=== PATIENT | male | born 1985 | race African-American/Black ===

== ENCOUNTER 2017-02-04 08:10 | Emergency (ER) | payer MEDICARE, MEDICAID ==
--- NOTE | 2017-02-04 08:32 | EKG REPORT ---
SEVERITY:- BORDERLINE ECG - SINUS RHYTHM BORDERLINE T ABNORMALITIES, INFERIOR LEADS : Confirmed by: Bryson Francisco MD 04-Feb-2017 08:32:37
[2017-02-04] MEDS ORDERED: LIDOCAINE 2% VISCOUS SOLN 20 ML UDCUP PO ONE (09:19)
[2017-02-04] MEDS ORDERED: MAG HYDROX/AL HYDROX/SIMETH SUSP 30 ML UDCUP PO ONE (09:19)
[2017-02-04] MEDS ORDERED: ASPIRIN 81 MG TABLET, CHEWABLE PO ONE (09:19)
[2017-02-04] MEDS ORDERED: METOCLOPRAMIDE HCL ORAL SOLN 10 MG/10 ML UDCUP PO ONE (09:19)
--- NOTE | 2017-02-04 09:22 | ER Document Report ---
ED Cardiac - General Chief Complaint: Epigastric Pain Stated Complaint: CHEST PAIN Notes: The patient is a 31-year-old male, past medical history hypertension (not taking his meds), presents with 5 hours of epigastric pain and substernal chest pain as described as a burning sensation. He said the pain is constant. He has had this in the past and it resolved without any intervention. He denies numbness, tingling, shortness of breath, fevers, nausea, vomiting, back pain, leg swelling, cough, hemoptysis, fevers or recent travel. TRAVEL OUTSIDE OF THE [place] IN LAST 30 DAYS: No - Related Data Allergies/Adverse Reactions: No Known Allergies Allergy (Unverified 02/04/17 08:14) Past Medical History - General Information source: Patient - Social History Smoking Status: Never Smoker Frequency of alcohol use: None Drug Abuse: None Family History: Reviewed & Not Pertinent Patient has suicidal ideation: No Patient has homicidal ideation: No - Past Medical History Cardiac Medical History: Reports: Hx Hypertension Endocrine Medical History: Denies: Hx Diabetes Mellitus Type 2 Renal/ Medical History: Denies: Hx Peritoneal Dialysis Review of Systems - Review of Systems Notes: REVIEW OF SYSTEMS: CONSTITUTIONAL: -fevers, -chills EENT: -eye pain, -difficulty swallowing, -nasal congestion CARDIOVASCULAR: +chest pain, -syncope. RESPIRATORY: -cough, -SOB GASTROINTESTINAL: -epigastric pain, -nausea, -vomiting, -diarrhea GENITOURINARY: -dysuria, -hematuria MUSCULOSKELETAL: -back pain, -neck pain SKIN: -rash or skin lesions. HEMATOLOGIC: -easy bruising or bleeding. LYMPHATIC: -swollen, enlarged glands. NEUROLOGICAL: -altered mental status or loss of consciousness, -headache, - neurologic symptoms PSYCHIATRIC: -anxiety, -depression. ALL OTHER SYSTEMS REVIEWED AND NEGATIVE. Physical Exam - Vital signs Vitals: Temp Pulse Resp BP Pulse Ox 98.0 F 65 20 177/106 H 97 02/04/17 08:17 02/04/17 08:17 02/04/17 08:17 02/04/17 08:17 02/04/17 08:17 - Notes Notes: PHYSICAL EXAMINATION: GENERAL: Well-appearing, well-nourished and in no acute distress. HEAD: Atraumatic, normocephalic. EYES: Pupils equal round and reactive to light, extraocular movements intact, sclera anicteric, conjunctiva are normal. ENT: nares patent, oropharynx clear without exudates. Moist mucous membranes. NECK: Normal range of motion, supple without lymphadenopathy LUNGS: Breath sounds clear to auscultation bilaterally and equal. No wheezes rales or rhonchi. HEART: Regular rate and rhythm without murmurs ABDOMEN: Soft, nontender, normoactive bowel sounds. No guarding, no rebound. No masses appreciated. EXTREMITIES: Normal range of motion, no pitting or edema. No cyanosis. NEUROLOGICAL: Cranial nerves grossly intact. Normal speech, normal gait. Normal sensory, motor, and reflex exams. PSYCH: Normal mood, normal affect. SKIN: Warm, Dry, normal turgor, no rashes or lesions noted. Course - Re-evaluation Re-evalutation: Patient's HEART score 2. PERC negative and symptoms atypical for aortic dissection without back pain. After GI cocktail, patient is completely asymptomatic. Since patient's symptoms started last night and are constant, only one troponin is required. Troponin negative. He does have mild rhabdo with a CK of 1100, but no renal injury. Provided 2 L of fluids and told patient that he must drink plenty of fluids. Once again, he denies any cocaine use or prolonged immobility. Will provide him with a refill of his amlodipine for his hypertension and told him to follow-up with primary care physician for further evaluation of his chest pain. Also told him to take Pepcid to help with any symptoms. - Vital Signs Vital signs: Temp Pulse Resp BP Pulse Ox 98.0 F 65 20 177/106 H 97 02/04/17 08:17 02/04/17 08:17 02/04/17 08:17 02/04/17 08:17 02/04/17 08:17 - Laboratory Result Diagrams: 02/04/17 09:31 02/04/17 09:31 Laboratory results interpreted by me: 02/04/17 09:31 Creatine Kinase 1192 H - Diagnostic Test Radiology reviewed: Image reviewed, Reports reviewed Radiology results interpreted by me: CXR: NAD - EKG Interpretation by Me EKG shows normal: Sinus rhythm, [place], Intervals, QRS Complexes, ST-T Waves Rate: Normal When compared to previous EKG there are: Previous EKG unavailable Discharge - Discharge Clinical Impression: Rhabdomyolysis Qualifiers: Rhabdomyolysis type: non-traumatic Qualified Code(s): M62.82 - Rhabdomyolysis Chest pain Qualifiers: Chest pain type: unspecified Qualified Code(s): R07.9 - Chest pain, unspecified Hypertension Qualifiers: Hypertension type: other secondary hypertension Qualified Code(s): I15.8 - Other secondary hypertension Condition: Good Disposition: HOME, SELF-CARE Additional Instructions: You must drink plenty of water over the next few days to help prevent any more muscle breaking down. Take Pepcid to help with any pain. He must follow-up with the primary care physician for further evaluation of your chest pain and to have your muscle enzymes rechecked. Return immediately to the emergency room if he have worsening pain or any other concerns. CHEST PAIN OF UNCLEAR CAUSE: The exact cause of your chest pain isn't clear. Fortunately, there is no evidence of a dangerous medical condition. Further testing may be required to find the source of the pain. Most often, we find that this pain is coming from the chest wall -- the muscles or rib joints in the chest. But chest pain can come from the lung and lung lining, the esophagus, the heart valves or heart lining, and even the stomach or gallbladder. Rest. Eat lightly until the pain is gone. We may prescribe medicine for pain and inflammation. You should call the physician immediately if the pain radiates to the shoulder, jaw or arms; if you start to run a fever or develop a cough; or if you develop shortness of breath, or other new or alarming symptoms. NORMAL EXAM AND WORKUP: At this time, your examination and workup show no significant abnormality. No significant abnormal physical findings were noted. All laboratory, EKG, and imaging (x-ray, CT scans, ultrasound) studies that were ordered show no significant abnormality. Although your examination and all studies that were ordered showed no significant abnormal finding, there are no examinations and no studies that are 100% accurate. There is always the possibility that some abnormality could exist and not be detected with physical examination or within the limits and capabilities of laboratory and other studies. You should return or follow up as you were instructed on your visit today for further evaluation if your symptoms do not resolve. CHEST WALL PAIN: Your chest pain may be coming from the chest wall. This is often caused by straining the muscles or joints in the chest during physical activity, direct trauma, coughing, or vigorous vomiting. Persons with arthritis are especially prone to this type of pain, due to inflammation of the cartilage joints near the breast bone. Occasionally, no cause can be found. Rest from strenuous physical activity. This kind of chest pain is usually made worse by movement of the chest. Depending on the symptoms, we may prescribe medicine for pain, muscle relaxation, and antiinflammatory effects. If the pain is new, and seems to be due to muscle strain, cold packs can help. Otherwise, apply gentle warmth to the painful area for 15 minutes every hour or two. You should call contact the doctor immediately if things change. Further evaluation is needed if you develop a fever or cough, if the nature of the pain changes, or if you become short of breath. ANGINA EPISODE: Your physician has diagnosed the pain you experienced as an episode of angina. Angina occurs when a portion of the heart muscle temporarily lacks oxygen. It does not cause any permanent heart damage, but serves as a warning. Hospitalization is not necessary now. Evaluation of your cardiac condition , and medical therapy for angina will be necessary. It's important you be sure to keep all appointments and take medication exactly as prescribed. Angina is usually treated with a type of "nitrate" medication. This is available as ointment, pills, or sublingual (under the tongue) tablets. Depending on your clinical situation, other medications may be added to help control angina. These may include beta blockers or calcium blockers. If episodes of angina are occurring with increased frequency, or if chest pain lasts longer than 15 minutes or does not respond to nitroglycerin, you must seek emergency medical care immediately. ACID REFLUX DISEASE (GERD): Gastro-Esophageal Reflux Disease (GERD) is caused by stomach acid refluxing back up into the esophagus. The valve at the end of the esophagus may be weak. This is common in persons with a hiatal hernia. GERD symptoms can include indigestion, chest pain, heartburn, or food "sticking." Certain foods, alcohol, and aspirin can make GERD worse. Treatment depends on the severity. Usually, antacids or acid-suppressing medicines are used. When the esophagus is acutely inflamed, the physician will often prescribe membrane-protective drugs such as Carafate. Some patients benefit from medication such as Reglan that tightens the valve at the top of the stomach. Avoid those foods that bring on your symptoms. For many people, these foods are coffee, chocolate, onions, garlic, and carbonated drinks. Don't use alcohol, aspirin, caffeine, or tobacco. Don't eat late at night -- within 4 hours of bedtime. Don't over-eat. If necessary, elevate the head of your bed about 4 inches so that stomach acid will not roll up into your esophagus. Call the doctor if you develop severe chest pain, inability to swallow fluids, fever, or worsening symptoms. ANTACID THERAPY: You have been instructed to start antacid therapy. Antacids directly neutralize stomach acid. This is useful for acid irritation of the esophagus, gastritis, and ulcers. You should take two tablespoons of antacid one hour after each meal and three hours after each meal. If you are not eating, take the antacid every two hours. If you are using a concentrate (such as Maalox TC), use only one tablespoon. Many antacids affect the bowels. The most common problem is diarrhea. In this case, a pure aluminum hydroxide antacid (such as AlternaGel) can be substituted for some or all doses. If the problem is constipation, add a teaspoon of Milk of Magnesia to each dose. Call the doctor if you experience continued diarrhea or constipation, or if you develop lightheadedness, bloody stool or vomitus, severe abdominal pain, or black stool. FOLLOW-UP CARE: If you have been referred to a physician for follow-up care, call the physician s office for an appointment as you were instructed or within the next two days. If you experience worsening or a significant change in your symptoms, notify the physician immediately or return to the Emergency Department at any time for re-evaluation. Prescriptions: Amlodipine Besylate 5 mg PO DAILY #30 tab Referrals: DARIEN DEAN MD [COMMUNITY BASED STAFF] - Follow up as needed
[2017-02-04 09:55] LABS: ABSOLUTE BASOPHILS # (AUTO) 0.1 10^3/uL (0.0-0.2); ABSOLUTE EOSINOPHILS # (AUTO) 0.2 10^3/uL (0.0-0.6); ABSOLUTE LYMPHOCYTES (AUTO) 2.2 10^3/uL (0.5-4.7); ABSOLUTE MONOCYTES (AUTO) 0.5 10^3/uL (0.1-1.4); ABSOLUTE NEUT (AUTO) 3.4 10^3/uL (1.7-8.2); BASOPHILS % (AUTO) 0.9 % (0-2); EOSINOPHILS % (AUTO) 3.2 % (0-6); HEMATOCRIT 43.8 % (37.9-51.0); HEMOGLOBIN 14.2 g/dL (13.5-17.0); HGB HCT DIFFERENCE -1.2; LYMPHOCYTES % (AUTO) 34.8 % (13-45); MEAN CORPUSCULAR HGB CONC 32.5 g/dL (32.0-36.0); MEAN CORPUSCULAR VOLUME 83 fl (80-97); MONOCYTES % (AUTO) 7.4 % (3-13); RED BLOOD COUNT 5.26 10^6/uL (4.35-5.55); RED CELL DISTRIBUTION WIDTH 12.7 % (11.5-14.0); SEGMENTED NEUTROPHILS % (AUTO) 53.7 % (42-78); WHITE BLOOD COUNT 6.3 10^3/uL (4.0-10.5)
[2017-02-04 10:08] LABS: ALANINE AMINOTRANSFERASE 49 U/L (21-72); ALKALINE PHOSPHATASE 78 U/L (38-126); ANION GAP 11 (5-19); ASPARTATE AMINO TRANSFERASE 38 U/L (17-59); BILIRUBIN,DIRECT 0.2 mg/dL (0.0-0.4); BILIRUBIN,TOTAL 0.9 mg/dL (0.2-1.3); BLOOD UREA NITROGEN 15 mg/dL (7-20); CALCIUM 9.5 mg/dL (8.4-10.2); CARBON DIOXIDE 27 mmol/L (22-30); CHLORIDE 106 mmol/L (98-107); CREATINE KINASE 1192 U/L (55-170); CREATININE RESULT 0.88 mg/dL (0.52-1.25); GLUCOSE 101 mg/dL (75-110); LIPASE 104.7 U/L (23-300); POTASSIUM 4.2 mmol/L (3.6-5.0); SODIUM 144.3 mmol/L (137-145); TOTAL PROTEIN 7.1 g/dL (6.3-8.2)
[2017-02-04] MEDS ORDERED: NORMAL SALINE 1000 ML 1,000 ML IV PRN (10:41)
[2017-02-04 11:57] VITALS: BP 181/108
== END 2017-02-04 11:57 | disposition home or self-care (01) ==
LOC: ER 08:10
DX: M62.82 Rhabdomyolysis (principal); R07.9 Chest pain, unspecified; R10.13 Epigastric pain; I15.8 Other secondary hypertension
CPT/HCPCS: 93005; 99285; 96360; 36415; 82550; 83690; 85025; 80053; 84484; 71020; 93010; A9270 ×2; J3490; J7030

== ENCOUNTER 2017-10-23 03:29 | Emergency (ER) | payer MEDICARE, MEDICAID ==
[2017-10-23] MEDS ORDERED: IPRATROPIUM/ALBUTEROL 0.5-2.5 MG/3 ML AMPUL NEB ONE ×2 (04:17→05:47)
[2017-10-23] MEDS ORDERED: AZITHROMYCIN 250 MG TABLET PO ONE (05:47)
[2017-10-23] MEDS ORDERED: PREDNISONE 20 MG TABLET PO ONE (05:48)
--- NOTE | 2017-10-23 05:48 | RADIOLOGY REPORT (SQ) ---
EXAM DESCRIPTION: CHEST PA/LAT CLINICAL HISTORY: 32 years, Male, sob COMPARISON: None. NUMBER OF VIEWS: Two TECHNIQUE: Frontal and lateral LIMITATIONS: None. FINDINGS: Adequate lung volumes, clear parenchyma, mild enlargement of the cardiac silhouette, intact bony thorax. IMPRESSION: Mild enlargement of the cardiac silhouette. Otherwise, unremarkable. 2010 [email or web address]- All Rights Reserved
--- NOTE | 2017-10-23 05:59 | ER Document Report ---
ED General - General Chief Complaint: Cough Stated Complaint: BREATHING DIFFICULTY Time Seen by Provider: 10/23/17 04:17 TRAVEL OUTSIDE OF THE [place] IN LAST 30 DAYS: No - HPI Patient complains to provider of: Difficulty breathing Notes: Patient presents for difficulty breathing ongoing for the last 2 days worse tonight. Patient states he does smoke stop smoking 2 days ago when he started having difficulty breathing denies any chills states night sweats coughing up productive sputum. Denies any recent travel patient does have a history of hypertension states he does take medication however did not take it tonight. Patient otherwise looks to be no obvious distress upon my evaluation. - Related Data Allergies/Adverse Reactions: No Known Allergies Allergy (Verified 10/23/17 03:30) Past Medical History - Social History Smoking Status: Current Every Day Smoker Chew tobacco use (# tins/day): No Frequency of alcohol use: None Drug Abuse: None Family History: Reviewed & Not Pertinent Patient has suicidal ideation: No Patient has homicidal ideation: No - Past Medical History Cardiac Medical History: Reports: Hx Hypertension Endocrine Medical History: Denies: Hx Diabetes Mellitus Type 2 Renal/ Medical History: Denies: Hx Peritoneal Dialysis Review of Systems - Review of Systems Constitutional: No symptoms reported EENT: No symptoms reported Cardiovascular: No symptoms reported Respiratory: Cough, Short of breath, Wheezing Gastrointestinal: No symptoms reported Genitourinary: No symptoms reported Male Genitourinary: No symptoms reported Musculoskeletal: No symptoms reported Skin: No symptoms reported Hematologic/Lymphatic: No symptoms reported Neurological/Psychological: No symptoms reported -: Yes All other systems reviewed and negative Physical Exam - Vital signs Vitals: Temp Pulse Resp BP Pulse Ox 99.1 F 87 18 202/103 H 98 10/23/17 03:30 10/23/17 03:30 10/23/17 03:30 10/23/17 03:30 10/23/17 03:30 Interpretation: Hypertensive - General General appearance: Appears well, Alert - HEENT Head: Normocephalic, Atraumatic Eyes: Normal Pupils: PERRL - Respiratory Respiratory status: No respiratory distress Chest status: Nontender Breath sounds: Rhonchi, Wheezing Chest palpation: Normal - Cardiovascular Rhythm: Regular Heart sounds: Normal auscultation Murmur: No - Abdominal Inspection: Normal Distension: No distension Bowel sounds: Normal Tenderness: Nontender Organomegaly: No organomegaly - Back Back: Normal, Nontender - Extremities General upper extremity: Normal inspection, Nontender, Normal color, Normal ROM , Normal temperature General lower extremity: Normal inspection, Nontender, Normal color, Normal ROM , Normal temperature, Normal weight bearing. No: Temo's sign - Neurological Neuro grossly intact: Yes Cognition: Normal Orientation: AAOx4 Azeem Coma Scale Eye Opening: Spontaneous [place] Coma Scale Verbal: Oriented Aze[place] Coma Scale Motor: Obeys Commands [place] Coma Scale Total: 15 Speech: Normal Motor strength normal: LUE, RUE, LLE, RLE Sensory: Normal - Psychological Associated symptoms: Normal affect, Normal mood - Skin Skin Temperature: Warm Skin Moisture: Dry Skin Color: Normal Course - Re-evaluation Re-evalutation: 10/23/17 06:15 Chest x-ray reviewed by myself does not show any signs of overt pneumonia. Symptoms more likely due to bronchitis. Patient did have some improvement after breathing treatment. Will discharge patient home bronchodilators steroids and Zithromax due to productive cough. Educated patient to stop smoking. Patient states understanding will discharge - Vital Signs Vital signs: Temp Pulse Resp BP Pulse Ox 99.1 F 87 18 202/103 H 98 10/23/17 03:30 10/23/17 03:30 10/23/17 03:30 10/23/17 03:30 10/23/17 03:30 Discharge - Discharge Clinical Impression: Bronchitis Condition: Good Disposition: HOME, SELF-CARE Instructions: Bronchitis With Bronchospasm (Wheezing) ([facility]) Additional Instructions: There examination is consistent with bronchitis. More likely this is due to your smoking and to the weather changes. Please stop smoking take medications as prescribed. Return to the ER symptoms worsen. Also is very important that she follow-up with primary care physician physicians provided or clinics provided for further control of your blood pressure. Please continue to take the blood pressure medication that you have at home. Return to the ER if any symptoms worsen. Prescriptions: Azithromycin 250 mg PO DAILY 4 Days tablet Prednisone [Deltasone] 60 mg PO DAILY 5 Days tablet Forms: Return to Work, Smoking Cessation Education
[2017-10-23] MEDS ORDERED: PREDNISONE 20 MG TABLET ONE ×2 (06:21→06:39)
[2017-10-23] MEDS ORDERED: ALBUTEROL SULFATE HFA (90 MCG/PUFF) 8 GM MDI (1 MDI/ER DISP) IH ONE (06:23)
[2017-10-23 06:46] VITALS: BP 145/82
== END 2017-10-23 06:40 | disposition home or self-care (01) ==
LOC: ER 03:29
DX: J40 Bronchitis, not specified as acute or chronic (principal); F17.200 Nicotine dependence, unspecified, uncomplicated; I10 Essential (primary) hypertension
CPT/HCPCS: 94640; 99283; 71020; A9270 ×3; J3490; J7512; J7620

== ENCOUNTER 2018-08-30 02:33 | Emergency (ER) | payer MEDICARE, MEDICAID ==
--- NOTE | 2018-08-30 05:16 | ER Document Report ---
HPI - HPI Patient complains to provider of: cough/congestion Pain Level: Denies Context: Patient is a 33-year-old male presenting to the emergency department complaining of cough and congestion. Patient states he has had increased cough and congestion for the last week. Patient denies fever.. Patient denies nausea , vomiting, diarrhea, chest pain, abdominal pain, dysuria. Patient states this evening when he was lying flat in bed he had an increase in nasal secretions and was coughing too much and could not sleep. Patient states he felt better when he sat up but when he tried to lay down the secretions continued and he was feeling short of breath. Patient states as long as he is sitting upright he has no respiratory distress. States he is just congested. Patient tried no [id number] medications. Past medical history: None Medications: None Allergies: None Surgical history: None Patient admits to everyday cigarette use, denies EtOH use, denies illicit drug use. - CONSTITUTIONAL Constitutional: DENIES: Fever, Chills - EENT EENT: DENIES: Sore Throat, Ear Pain, Eye problems - NEURO Neurology: DENIES: Headache, Weakness, Vision blurred, Dizzinesss / Vertigo - CARDIOVASCULAR Cardiovascular: DENIES: Chest pain - RESPIRATORY Respiratory: REPORTS: Trouble Breathing, Coughing - GASTROINTESTINAL Gastrointestinal: DENIES: Abdominal Pain, Black / Bloody Stools - URINARY Urinary: DENIES: Dysuria, Urgency, Frequency - MUSCULOSKELETAL Musculoskeletal: DENIES: Extremity pain Past Medical History - General Information source: Patient - Social History Smoking Status: Current Every Day Smoker Lives with: Family Family History: Reviewed & Not Pertinent Patient has suicidal ideation: No Patient has homicidal ideation: No - Past Medical History Cardiac Medical History: Reports: Hx Hypertension Endocrine Medical History: Denies: Hx Diabetes Mellitus Type 2 Renal/ Medical History: Denies: Hx Peritoneal Dialysis Vertical Provider Document - CONSTITUTIONAL Agree With Documented VS: Yes Notes: GENERAL: Alert, interacts well. No acute distress. HEAD: Normocephalic, atraumatic. EYES: Pupils equal, round, and reactive to light. Extraocular movements intact. ENT: Oral mucosa moist, tongue midline. Nares patent, swollen turbinates bilaterally, TM's intact, no erythema or bulging noted. Pharynx within normal limits. Tonsils +2 no exudate or palatal petechiae noted NECK: Full range of motion. Supple. Trachea midline. No adenopathy appreciated LUNGS: Clear to auscultation bilaterally, no wheezes, rales, or rhonchi. No respiratory distress. HEART: Regular rate and rhythm. No murmur ABDOMEN: Soft, non-tender. Non-distended. Bowel sounds present in all 4 quadrants. EXTREMITIES: Moves all 4 extremities spontaneously. No edema, normal radial and dorsalis pedis pulses bilaterally. No cyanosis. BACK: no cervical, thoracic, lumbar midline tenderness. No saddle anesthesia, normal distal neurovascular exam. NEUROLOGICAL: Alert and oriented x3. Normal speech. [cranial nerves II through XII grossly intact]. PSYCH: Normal affect, normal mood. SKIN: Warm, dry, normal turgor. No rashes or lesions noted. - INFECTION CONTROL TRAVEL OUTSIDE OF THE [place] IN LAST 30 DAYS: No Course - Re-evaluation Re-evalutation: 08/30/18 05:14 This is likely viral in nature no frontal or ethmoid sinus tenderness. No signs of sinusitis. No fever and duration is only 1 week. We will treat with nasal steroids. Return precautions given. - Vital Signs Vital signs: Temp Pulse Resp BP Pulse Ox 98.5 F 81 22 H 188/108 H 96 08/30/18 02:48 08/30/18 02:48 08/30/18 02:48 08/30/18 02:48 08/30/18 02:48 Discharge - Discharge Clinical Impression: Upper respiratory infection Qualifiers: URI type: unspecified viral URI Qualified Code(s): J06.9 - Acute upper respiratory infection, unspecified Condition: Stable Disposition: HOME, SELF-CARE Instructions: Acetaminophen, Upper Respiratory Illness ([facility]), Viral Syndrome ( [facility]) Additional Instructions: As we discussed if possible you should sleep with a couple extra pillows for the next couple of days. This will help your sinus drainage. You should also go into the bathroom with steam. This will help your nasal drainage. Use nasal spray as prescribed. Follow-up with primary care in the next 24-48 hours. Return to the emergency room for any other concerning symptoms. Prescriptions: Fluticasone Propionate [Flonase Nasal [place] 50 Mcg/[place] 16 gm] 2 sprays NASL Q12 #1 inhaler
[2018-08-30 05:49] VITALS: BP 170/99
== END 2018-08-30 05:23 | disposition home or self-care (01) ==
LOC: ER 02:33
DX: J06.9 Acute upper respiratory infection, unspecified (principal); F17.210 Nicotine dependence, cigarettes, uncomplicated; R06.00 Dyspnea, unspecified
CPT/HCPCS: 99283

== ENCOUNTER 2018-09-21 17:33 | Emergency (ER) | payer MEDICARE, MEDICAID ==
[2018-09-21] MEDS ORDERED: TETRACAINE HCL 0.5% OPH SOLN 4 ML OS ONE (17:38)
--- NOTE | 2018-09-21 19:19 | ER Document Report ---
HPI - HPI Patient complains to provider of: right eye red Onset: Other - 2 days ago Pain Level: 5 Context: 33 yo non contact lens wearer c/o reddened right eye. Shaved metal the other day , next day it became red and this morning was crusted shut. No visual changes. Associated Symptoms: None Exacerbated by: Denies Relieved by: Denies - ROS ROS below otherwise negative: Yes Systems Reviewed and Negative: Yes All other systems reviewed and negative Past Medical History - General Information source: Patient - Social History Smoking Status: Current Every Day Smoker Lives with: Family Family History: Reviewed & Not Pertinent - Past Medical History Cardiac Medical History: Reports: Hx Hypertension - no meds for a long time Surgical Hx: Negative Vertical Provider Document - CONSTITUTIONAL Agree With Documented VS: Yes Exam Limitations: No Limitations General Appearance: No Apparent Distress - INFECTION CONTROL TRAVEL OUTSIDE OF THE [place] IN LAST 30 DAYS: No - HEENT HEENT: Conjuctival Injection Notes: PERRL, bulbar and palpebral conjunctival injection, no limbic flare, anterior chamber clear, no FB, no fluorescein uptake. Some preauricular nodes. - NECK Neck: Supple Course - Re-evaluation Re-evalutation: 09/21/18 20:07 visual acuity is normal. IOP right: 34.95, left 25.9. Consult Dr. Daniels who said use erythromycin ointment tonight and he will see him tomorrow morning at 8 AM he wants to see if a physician will use the slit lamp and I will go check on that. 09/21/18 20:19 Dr. Maharaj will come use a slit-lamp for the exam 09/21/18 20:36 Slit-lamp exam was negative per Dr. Maharaj. I placed the erythromycin half- inch ointment into his eye. He plans on scheduling an appointment with family [facility] for the hypertension that he is not treating. - Vital Signs Vital signs: Temp Pulse Resp BP Pulse Ox 98.7 F 95 20 195/108 H 95 09/21/18 18:02 09/21/18 18:02 09/21/18 18:02 09/21/18 18:02 09/21/18 18:02 Discharge - Discharge Clinical Impression: elevated eye pressures Conjunctivitis, right eye Qualifiers: Conjunctivitis type: unspecified Qualified Code(s): H10.9 - Unspecified conjunctivitis Hypertension Qualifiers: Hypertension type: unspecified Qualified Code(s): I10 - Essential (primary) hypertension Condition: Good Disposition: HOME, SELF-CARE Instructions: Acetaminophen, Conjunctivitis ([facility]), Ibuprofen (General) ([facility]), Topical Erythromycin ([facility]) Additional Instructions: Erythromycin eye ointment half an inch every [address] Daniels eye doctor tomorrow morning at 8 I have included the address and phone number See Dr. Wilson which is the family [facility] for your hypertension Referrals: ELLY DANIELS MD [ACTIVE STAFF] - Follow up tomorrow (8 am) NORA WILSON DO [NO LOCAL MD] - Follow up as needed (schedule appointment for hypertension treatment)
[2018-09-21] MEDS ORDERED: ERYTHROMYCIN 0.5% OPH OINTMENT 3.5 GM (ER DISP) OD PRN (20:14)
[2018-09-21] MEDS ORDERED: IBUPROFEN 800 MG TABLET PO ONE (20:43)
[2018-09-21] MEDS ORDERED: ACETAMINOPHEN 325 MG TABLET PO ONE (20:43)
[2018-09-21 20:44] VITALS: BP 152/90
== END 2018-09-21 20:49 | disposition home or self-care (01) ==
LOC: ER 17:33
DX: H40.053 Ocular hypertension, bilateral (principal); H10.9 Unspecified conjunctivitis; I10 Essential (primary) hypertension; F17.200 Nicotine dependence, unspecified, uncomplicated
CPT/HCPCS: 99283; A9270; J3490

== ENCOUNTER 2018-09-26 12:29 | Emergency (ER) | payer MEDICARE, MEDICAID ==
[2018-09-26 12:40] VITALS: BP 162/99
[2018-09-26] MEDS ORDERED: TETRACAINE HCL 0.5% OPH SOLN 4 ML OU ONE (13:01)
--- NOTE | 2018-09-26 13:30 | ER Document Report ---
HPI - HPI Patient complains to provider of: Left eye discharge. Pain Level: 3 Context: Patient is a 33-year-old male presenting to the emergency department complaining of left eye discharge. Patient states he was to the department 5 days ago with right eye discharge. Stated he was treated with erythromycin ointment which he has since been using in the right eye. States this morning he noticed discharge to the left eye which is what prompted his emergency room visit. Patient states after coming to the emergency room he was told to follow- up with ophthalmology which he did. States hyperion analyst told him to just continue erythromycin ointment for conjunctivitis. Patient denies any foreign body sensation in the left eye. States right eye is still red but has not had any discharge and feels "a whole lot better." Past medical history: Hypertension Medications: Amlodipine Allergies: None - CONSTITUTIONAL Constitutional: REPORTS: Fever. DENIES: Chills - EENT EENT: REPORTS: Sore Throat, Ear Pain, Eye problems - NEURO Neurology: REPORTS: Vision blurred. DENIES: Headache, Weakness, Dizzinesss / Vertigo - CARDIOVASCULAR Cardiovascular: DENIES: Chest pain - RESPIRATORY Respiratory: REPORTS: Coughing. DENIES: Trouble Breathing - GASTROINTESTINAL Gastrointestinal: DENIES: Abdominal Pain, Black / Bloody Stools - URINARY Urinary: DENIES: Dysuria, Urgency, Frequency - MUSCULOSKELETAL Musculoskeletal: DENIES: Extremity pain Past Medical History - General Information source: Patient - Social History Smoking Status: Current Every Day Smoker Chew tobacco use (# tins/day): No Frequency of alcohol use: None Drug Abuse: None Lives with: Family Family History: Reviewed & Not Pertinent Patient has suicidal ideation: No Patient has homicidal ideation: No - Past Medical History Cardiac Medical History: Reports: Hx Hypertension - no meds for a long time Endocrine Medical History: Denies: Hx Diabetes Mellitus Type 2 Renal/ Medical History: Denies: Hx Peritoneal Dialysis Vertical Provider Document - CONSTITUTIONAL Agree With Documented VS: Yes Notes: GENERAL: Morbidly obese alert, interacts well. No acute distress. HEAD: Normocephalic, atraumatic. EYES: Pupils equal, round, and reactive to light. Extraocular movements intact. Conjunctival injection bilateral eyes, left eye with matted eyelashes, right eye no discharge noted. ENT: Oral mucosa moist, tongue midline. NECK: Full range of motion. Supple. Trachea midline. LUNGS: Clear to auscultation bilaterally, no wheezes, rales, or rhonchi. No respiratory distress. HEART: Regular rate and rhythm. No murmur ABDOMEN: Soft, non-tender. Non-distended. Bowel sounds present in all 4 quadrants. EXTREMITIES: Moves all 4 extremities spontaneously. No edema, normal radial and dorsalis pedis pulses bilaterally. No cyanosis. BACK: no cervical, thoracic, lumbar midline tenderness. No saddle anesthesia, normal distal neurovascular exam. NEUROLOGICAL: Alert and oriented x3. Normal speech. cranial nerves II through XII grossly intact PSYCH: Normal affect, normal mood. SKIN: Warm, dry, normal turgor. No rashes or lesions noted. - INFECTION CONTROL TRAVEL OUTSIDE OF THE [place] IN LAST 30 DAYS: No Course - Re-evaluation Re-evalutation: 09/26/18 13:37 Patient states although ointment has been helping his right eye he would like drops for the left eye. Patient also requesting oral antibiotics at this time. Discussed at length with patient that oral antibiotics will not treat his eye infection. Will discharge him home with Polytrim drops. Patient denies wearing contact lenses. Discussed follow-up with hyperion analyst and return precautions discussed. 09/26/18 13:40 No foreign body sensation felt in the left eye, no need for florescene stain. Patient states he is unable to see out of the left eye because of the discharge and it is blurry. Had Dr. Sweet use slit lamp at bedside who stated exam was normal. stated he needs to f/u with Dr. Daniels again. - Vital Signs Vital signs: Temp Pulse Resp BP Pulse Ox 97.7 F 65 18 162/99 H 94 09/26/18 12:38 09/26/18 12:38 09/26/18 12:38 09/26/18 12:38 09/26/18 12:38 Discharge - Discharge Clinical Impression: Conjunctivitis Qualifiers: Conjunctivitis type: acute Acute conjunctivitis type: bacterial Laterality: left Qualified Code(s): H10.32 - Unspecified acute conjunctivitis, left eye Condition: Stable Disposition: HOME, SELF-CARE Instructions: Conjunctivitis ([facility]), Eyedrop Use ([facility]) Additional Instructions: As we discussed you have been seen and treated in the emergency room for conjunctivitis. Please use prescription drops as prescribed. Please also follow-up with the hyperion analyst Dr. Daniels again. Please make an appointment with your primary care provider. Return to the emergency room for any other concerning symptoms. Prescriptions: Polymyxin B Sulf/Trimethoprim [Polytrim Eye Drops] 1 drop OS Q3H #10 ml Forms: Elevated Blood Pressure
== END 2018-09-26 14:14 | disposition home or self-care (01) ==
LOC: ER 12:29
DX: H10.32 Unspecified acute conjunctivitis, left eye (principal); J02.9 Acute pharyngitis, unspecified; R05 Cough; R50.9 Fever, unspecified; F17.200 Nicotine dependence, unspecified, uncomplicated; E11.9 Type 2 diabetes mellitus without complications; E66.01 Morbid (severe) obesity due to excess calories; I10 Essential (primary) hypertension; Z79.899 Other long term (current) drug therapy
CPT/HCPCS: 99283; J3490

== ENCOUNTER 2018-09-29 01:42 | Emergency (ER) | payer MEDICARE, MEDICAID ==
[2018-09-29 01:49] VITALS: BP 170/101
--- NOTE | 2018-09-29 02:13 | ER Document Report ---
ED Eye Complaint - General Chief Complaint: Eye Pain Stated Complaint: LEFT EYE PAIN Time Seen by Provider: 09/29/18 02:05 Notes: Patient is a 33-year-old male that comes to the emergency department for chief complaint of left eye irritation and discharge, he also has right artery discharge but this has improved and resolved. He was treated with erythromycin ointment initially for the right eye, he then developed discharge in the left eye which she was seen for in the department 3 days ago. He was placed on Polytrim drops but states he has are not helping even though the right eye has resolved now. Family members now also have irritated eyes with discharge. Patient does not wear contacts, did not wear glasses. Patient does report foreign body sensation. He denies getting anything in his eye or scratching his eye. Patient states he has already followed up with ophthalmology before his visit to the emergency department 3 days ago and they told him to just continue the erythromycin ointment for conjunctivitis. Past medical history of hypertension, previously on amlodipine. TRAVEL OUTSIDE OF THE [place] IN LAST 30 DAYS: No - Related Data Allergies/Adverse Reactions: No Known Allergies Allergy (Verified 09/26/18 12:38) Past Medical History - General Information source: Patient - Social History Smoking Status: Never Smoker Drug Abuse: None Lives with: Family Family History: Reviewed & Not Pertinent Patient has suicidal ideation: No Patient has homicidal ideation: No - Past Medical History Cardiac Medical History: Reports: Hx Hypertension Endocrine Medical History: Denies: Hx Diabetes Mellitus Type 2 Renal/ Medical History: Denies: Hx Peritoneal Dialysis Surgical Hx: Negative - Immunizations Immunizations up to date: Yes Hx Diphtheria, Pertussis, Tetanus Vaccination: Yes Review of Systems - Review of Systems Constitutional: No symptoms reported EENT: See HPI Cardiovascular: No symptoms reported Respiratory: No symptoms reported Gastrointestinal: No symptoms reported Genitourinary: No symptoms reported Male Genitourinary: No symptoms reported Musculoskeletal: No symptoms reported Skin: No symptoms reported Hematologic/Lymphatic: No symptoms reported Neurological/Psychological: No symptoms reported Physical Exam - Vital signs Vitals: Temp Pulse Resp BP Pulse Ox 98.6 F 74 18 170/101 H 97 09/29/18 01:47 09/29/18 01:47 09/29/18 01:47 09/29/18 01:47 09/29/18 01:47 - Notes Notes: GENERAL: Alert, interacts well. No acute distress. HEAD: Normocephalic, atraumatic. EYES: Pupils equal, round, and reactive to light. Extraocular movements intact. Sclera injected bilaterally, much worse on the left, there is clear discharge from the left eye, no discharge from the right. Patient has difficulty opening the left eye. No superficial foreign body, negative Tiburcio sign. There is a large amount of circular fluorescein uptake covering almost 1/3 of the area of the iris width suggestive of corneal ulcer. ENT: Oral mucosa moist, tongue midline. Oropharynx unremarkable. Airway patent. Nares patent, no nasal septal hematoma, TM's intact. NECK: Full range of motion. Supple. Trachea midline. LUNGS: Clear to auscultation bilaterally, no wheezes, rales, or rhonchi. No respiratory distress. HEART: Regular rate and rhythm. No murmur ABDOMEN: Soft, non-tender. Non-distended. Bowel sounds present in all 4 quadrants. GENITOURINARY: Deferred EXTREMITIES: Moves all 4 extremities spontaneously. No edema, normal radial and dorsalis pedis pulses bilaterally. No cyanosis. BACK: no cervical, thoracic, lumbar midline tenderness. No saddle anesthesia, normal distal neurovascular exam. NEUROLOGICAL: Alert and oriented x3. Normal speech. [cranial nerves II through XII grossly intact]. PSYCH: Normal affect, normal mood. SKIN: Warm, dry, normal turgor. No rashes or lesions noted. Course - Re-evaluation Re-evalutation: On evaluation patient appears to have a corneal ulcer. He does not have visual loss. No foreign bodies noted. Dr. Silveira did evaluate the patient at bedside and agrees. Called and spoke with Dr. Khan, ophthalmology transportation department head. He states patient was evaluated at his office previously, no foreign bodies or other abnormality was identified at that time. He recommends that patient be placed on Besivance 1 drop every 2 hours with additional erythromycin ointment patient is to be seen in his office at 830 this morning for him to evaluate. I discussed this with patient, patient is very agreeable with this plan. Patient was provided with these medications, pain medicine for tonight. Patient states he will be seen in the office. Patient is hypertensive here, previously on amlodipine, I offered to fill his prescription for him to take, he states he does not need it and he is only hypertensive because he is in pain, he states he will follow-up. No headache, chest pain, or lack of urination reported. - Vital Signs Vital signs: Temp Pulse Resp BP Pulse Ox 98.6 F 74 18 170/101 H 97 09/29/18 01:47 09/29/18 01:47 09/29/18 01:47 09/29/18 01:47 09/29/18 01:47 Discharge - Discharge Clinical Impression: Left eye pain Corneal ulcer Qualifiers: Laterality: left Qualified Code(s): H16.002 - Unspecified corneal ulcer, left eye Condition: Stable Disposition: HOME, SELF-CARE Additional Instructions: Your examination is most consistent with a corneal ulcer. Use the Besivance drops as prescribed, 1 drop every 2 hours, in addition to this use erythromycin ointment as prescribed. I spoke with public works commissioner Dr. Frances dias, please be seen in the office at the referral at 8:30 AM for them to further manage this. Return for any concerning symptoms including severe swelling of the eye or eyelids, fever, loss of vision, or any other concerning symptoms. Prescriptions: Erythromycin Base [Erythromycin Oph 1 Gm Oint Ud] 1 applic OD ASDIR PRN #1 tube PRN Reason: Forms: Return to Work Referrals: ELLY KHAN MD [ACTIVE STAFF] - 09/29/18 8:30 am
[2018-09-29] MEDS ORDERED: TETRACAINE HCL 0.5% OPH SOLN 4 ML OS ONE (02:14)
[2018-09-29] MEDS ORDERED: BESIFLOXACIN HCL 0.6% OPH SUSP 5 ML BOTTLE OS ONE (02:32)
[2018-09-29] MEDS ORDERED: ERYTHROMYCIN 0.5% OPH OINT 1 GM UNIT DOSE OS ONE (02:34)
[2018-09-29] MEDS ORDERED: HYDROCODONE/ACETAMINOPHEN 5-325 MG (6 TAB/ER DISP) PO PRN (02:43)
[2018-09-29] MEDS ORDERED: BESIFLOXACIN HCL 0.6% OPH SUSP 5 ML BOTTLE ONE (02:44)
== END 2018-09-29 02:59 | disposition home or self-care (01) ==
LOC: ER 01:42
DX: H16.002 Unspecified corneal ulcer, left eye (principal); H57.12 Ocular pain, left eye; I10 Essential (primary) hypertension
CPT/HCPCS: 99283; A9270 ×2; J3490

== ENCOUNTER 2018-09-30 19:54 | Emergency (ER) | payer MEDICARE, MEDICAID ==
[2018-09-30] MEDS ORDERED: TETRACAINE HCL 0.5% OPH SOLN 4 ML OS ONE (22:24)
--- NOTE | 2018-09-30 23:09 | ER Document Report ---
HPI - HPI Time Seen by Provider: 09/30/18 22:13 Pain Level: 4 Notes: Patient is a 33-year-old male with a history of ongoing bilateral eye pain and redness over the last month who presents to the ED complaining of continued pain despite being seen by ophthalmology yesterday. Patient has been on Besivance as well as erythromycin ointment and some p.o. pain medication. Patient states that his eyes are both red and watering, but his left eye has the intermittent sharp pains. He was diagnosed with a corneal ulcer. Patient does not wear contact lenses. Patient is requesting tetracaine. He denies drug allergies. Denies any headache, fever, neck pain, changes in speech/ mentation/hearing, URI, sore throat, chest pain, palpitations, syncope, cough, shortness of breath, wheeze, dyspnea, abdominal pain, nausea/vomiting/diarrhea, urinary retention, dysuria, hematuria, or rash. - ROS Systems Reviewed and Negative: Yes All other systems reviewed and negative Past Medical History - Social History Smoking Status: Unknown if Ever Smoked Family History: Reviewed & Not Pertinent - Past Medical History Cardiac Medical History: Reports: Hx Hypertension Endocrine Medical History: Denies: Hx Diabetes Mellitus Type 2 Renal/ Medical History: Denies: Hx Peritoneal Dialysis - Immunizations Immunizations up to date: Yes Hx Diphtheria, Pertussis, Tetanus Vaccination: Yes Vertical Provider Document - CONSTITUTIONAL Agree With Documented VS: Yes Notes: PHYSICAL EXAMINATION: GENERAL: Well-appearing, well-nourished and in no acute distress. A&Ox4 HEAD: Atraumatic, normocephalic. EYES: Pupils equal round and reactive to light, extraocular movements intact, sclera anicteric, (see below for conjunctiva), non-tender to palp of the globe and eye itself. No surrounding erythema or swelling noted. Visual acuity 20/ 20 rt and he could not perform with the left due to blurriness (performed by myself at bedside with my own eye chart). Wood's lamp/flourescein: + large corneal ulcer to the left eye. + small 2-3 corneal ulcers to the rt superior cornea. + red conjunctiva with watery discharge. No obvious foreign body appreciated. Tonopen pressure 30 b/l. ENT: EAC clear b/l. TM's intact b/l without erythema, fluid, or perforation. Nares patent and without discharge. oropharynx clear without exudates. No tonsilar hypertrophy or erythema. Moist mucous membranes. No sinus tenderness. Uvula midline. No palatine shift. No airway compromise. No drooling or hoarseness. NECK: Normal range of motion, supple without lymphadenopathy. No rigidity/ meningismus. LUNGS: Breath sounds clear to auscultation bilaterally and equal. No wheezes rales or rhonchi. HEART: Regular rate and rhythm without murmurs, rubs, gallops. NEUROLOGICAL: Cranial nerves grossly intact. Normal speech, normal gait. PSYCH: Normal mood, normal affect. SKIN: Warm, Dry, normal turgor, no rashes or lesions noted. - INFECTION CONTROL TRAVEL OUTSIDE OF THE [place] IN LAST 30 DAYS: No Course - Re-evaluation Re-evalutation: 09/30/18 23:01 Patient is an afebrile, well-hydrated, 33-year-old male who presents to the ED with a large corneal ulcer to the left eye and a few small corneal ulcers to the right. Vitals are acceptable. PE is otherwise unremarkable. Tetracaine did resolve his pain temporarily. Patient was evaluated by ophthalmology yesterday. He is currently on Besivance and erythromycin ointment. There is a chlamydial swab that is pending. See eye exam. I did call and review with Dr. Quintero who states that there is not much else that they can do at this time, but we can give him p.o. pain medication. He advises against sending patient home with tetracaine due to side effects. No further labs or imaging warranted at this time. Patient is to recheck with ophthalmology tomorrow. Return to the ED with any worsening/concerning symptoms otherwise as reviewed in discharge. Patient is in agreement. - Vital Signs Vital signs: Temp Pulse Resp BP Pulse Ox 98.4 F 71 22 H 167/96 H 97 09/30/18 20:47 09/30/18 20:47 09/30/18 20:47 09/30/18 20:47 09/30/18 20:47 Procedures - Eye Procedure Bilateral Time completed: 10:45 - see exam Eye Irrigated w/ Saline (ccs): 10 - each Alcaine Drops Administered: Yes - tetracaine Fluorescein applied: Bilateral Slit lamp used: No Discharge - Discharge Clinical Impression: Corneal ulcer Qualifiers: Laterality: bilateral Qualified Code(s): H16.003 - Unspecified corneal ulcer, bilateral Condition: Stable Disposition: HOME, SELF-CARE Additional Instructions: Keep eyes clean Avoid scratching/touching eyes Wash hands regularly Use medications as directed Maintain adequate fluid intake tylenol/ibuprofen as needed over the counter cold medication as needed for symptoms F/u: with your PCM in 2-3 days for a recheck Follow-up with ophthalmology tomorrow Return to the ED with any worsening symptoms and/or development of fever, headache, changes in vision, eye pain, worsening eye redness, redness around the eyes, purulent discharge, sore throat, facial swelling, neck pain/stiffness , chest pain, palpitations, syncope, shortness of breath, trouble breathing, abdominal pain, n/v/d, blood in stool/urine, dysuria, or other worsening symptoms that are concerning to you. Forms: Elevated Blood Pressure Referrals: ELLY KHAN MD [ACTIVE STAFF] - Follow up tomorrow
[2018-09-30 23:42] VITALS: BP 163/79
== END 2018-09-30 23:40 | disposition home or self-care (01) ==
LOC: ER 19:54
DX: H16.003 Unspecified corneal ulcer, bilateral (principal); H57.13 Ocular pain, bilateral; I10 Essential (primary) hypertension
CPT/HCPCS: 99283; J3490

== ENCOUNTER 2018-10-03 18:20 | Emergency (ER) | payer MEDICARE, MEDICAID ==
[2018-10-03 18:35] VITALS: BP 181/83
[2018-10-03] MEDS ORDERED: TETRACAINE HCL 0.5% OPH SOLN 4 ML ONE (21:08)
[2018-10-03] MEDS ORDERED: TETRACAINE HCL 0.5% OPH SOLN 4 ML OS ONE (21:19)
--- NOTE | 2018-10-03 21:21 | ER Document Report ---
ED General - General Chief Complaint: Eye Pain Stated Complaint: EYE PAIN Time Seen by Provider: 10/03/18 20:38 Notes: Patient is a 33-year-old male with a past medical history of morbid obesity, recently diagnosed with a bilateral viral conjunctivitis, has follow-up with ophthalmology regarding this issue who presents with ongoing left eye pain. He states that when his eye is open is feels fine but when he closes his eye it feels like there Sand or a foreign body in his eye. He states that this sensation has been ongoing for over 1 week. He states that the treatments prescribed by the synoptic meteorologist have not helped with his symptoms. Nothing worsens his symptoms other than closing his eye. He is asking for irrigation of his left eye. Denies any facial swelling, changes to vision acuity, fever or constitutional symptoms. TRAVEL OUTSIDE OF THE [place] IN LAST 30 DAYS: No - Related Data Allergies/Adverse Reactions: No Known Allergies Allergy (Verified 09/26/18 12:38) Past Medical History - General Information source: Patient - Social History Smoking Status: Current Every Day Smoker Frequency of alcohol use: None Drug Abuse: None Lives with: Spouse/Significant other Family History: Reviewed & Not Pertinent Patient has suicidal ideation: No Patient has homicidal ideation: No - Past Medical History Cardiac Medical History: Reports: Hx Hypertension Endocrine Medical History: Denies: Hx Diabetes Mellitus Type 2 Renal/ Medical History: Denies: Hx Peritoneal Dialysis - Immunizations Immunizations up to date: Yes Hx Diphtheria, Pertussis, Tetanus Vaccination: Yes Review of Systems - Review of Systems Notes: Constitutional: Negative for fever. HENT: Negative for sore throat. Eyes: Positive for left eye discomfort Cardiovascular: Negative for chest pain. Respiratory: Negative for shortness of breath. Gastrointestinal: Negative for abdominal pain, vomiting or diarrhea. Genitourinary: Negative for dysuria. Musculoskeletal: Negative for back pain. Skin: Negative for rash. Neurological: Negative for headaches, weakness or numbness. 10 point ROS negative except as marked above and in HPI. Physical Exam - Vital signs Vitals: Temp Pulse Resp BP Pulse Ox 98.5 F 83 24 H 181/83 H 100 10/03/18 18:29 10/03/18 18:29 10/03/18 18:29 10/03/18 18:29 10/03/18 18:29 Interpretation: Hypertensive Notes: PHYSICAL EXAMINATION: GENERAL: Appears moderately uncomfortable but in no acute distress HEAD: Atraumatic, normocephalic. EYES: Pupils equal round and reactive to light, extraocular movements intact, bilateral type of injection. Corneal ulcer noted on the left. ENT: nares patent, oropharynx clear without exudates. Moist mucous membranes. NECK: Normal range of motion, supple without lymphadenopathy LUNGS: Breath sounds clear to auscultation bilaterally and equal. No wheezes rales or rhonchi. HEART: Regular rate and rhythm without murmurs ABDOMEN: Soft, nontender, normoactive bowel sounds. No guarding, no rebound. No masses appreciated. EXTREMITIES: Normal range of motion, no pitting or edema. No cyanosis. NEUROLOGICAL: No focal neurological deficits. Moves all extremities spontaneously and on command. PSYCH: Normal mood, normal affect. SKIN: Warm, Dry, normal turgor, no rashes or lesions noted. Course - Re-evaluation Re-evalutation: 10/03/18 21:20 Patient presents with ongoing discomfort to his left eye, states he feels like there is something gritty and stuck in his eye. He has been seen multiple times in the emergency department for this issue, has also been seen by Dr. Daniels. He has been diagnosed with a viral conjunctivitis, is currently being treated by Dr. Daniels for this issue. Chlamydia culture is pending. Eye exam today is unchanged from previous documented findings with a noted corneal ulcer in the left eye, pupillary reflex intact, diffuse conjunctival injection. No evidence of proptosis or entrapment. No periorbital or orbital cellulitis. Patient did request irrigation of the eye stating that it would make him feel much better if we attempt this. We did agree to instill 1 drop of tetracaine in the left eye and inserted a Pietro lens and irrigated the eye. I have encouraged him to follow-up closely with ophthalmology and have advised that he return for any additional concerns he may have. - Vital Signs Vital signs: Temp Pulse Resp BP Pulse Ox 98.5 F 83 24 H 181/83 H 100 18 18:29 18 18:29 18 18:29 10/03/18 18:29 10/03/18 18:29 Discharge - Discharge Clinical Impression: Left eye pain Corneal ulcer Qualifiers: Laterality: left Qualified Code(s): H16.002 - Unspecified corneal ulcer, left eye Conjunctivitis Qualifiers: Conjunctivitis type: acute Acute conjunctivitis type: viral Laterality: bilateral Qualified Code(s): B30.9 - Viral conjunctivitis, unspecified Condition: Good Disposition: HOME, SELF-CARE Additional Instructions: Please follow-up with ophthalmology regarding your ongoing discomfort in your left eye. Your eye was irrigated tonight on your request. Please continue to use the eyedrops as prescribed by Dr. Daniels. Return if you have worsening pain , fever, facial swelling or any other symptoms that are worrisome to you.
== END 2018-10-03 21:44 | disposition home or self-care (01) ==
LOC: ER 18:20
DX: H16.002 Unspecified corneal ulcer, left eye (principal); B30.9 Viral conjunctivitis, unspecified; H57.12 Ocular pain, left eye; I10 Essential (primary) hypertension; F17.200 Nicotine dependence, unspecified, uncomplicated
CPT/HCPCS: 99283; J3490

== ENCOUNTER 2019-02-05 21:56 | Emergency (ER) | payer MEDICARE, MEDICAID ==
[2019-02-05 23:46] LABS: HEMATOCRIT 41.1 % (37.9-51.0); HEMOGLOBIN 13.7 g/dL (13.5-17.0); MEAN CORPUSCULAR HGB CONC 33.4 g/dL (32.0-36.0); MEAN CORPUSCULAR VOLUME 84 fl (80-97); PLATELET COUNT 303 10^3/uL (150-450); RED BLOOD COUNT 4.91 10^6/uL (4.35-5.55); RED CELL DISTRIBUTION WIDTH 13.2 % (11.5-14.0); WHITE BLOOD COUNT 8.6 10^3/uL (4.0-10.5)
[2019-02-05 23:57] LABS: ALANINE AMINOTRANSFERASE 60 U/L (21-72); ALBUMIN 4.1 g/dL (3.5-5.0); ALKALINE PHOSPHATASE 95 U/L (38-126); ANION GAP 10 (5-19); ASPARTATE AMINO TRANSFERASE 46 U/L (17-59); BILIRUBIN,DIRECT 0.2 mg/dL (0.0-0.4); BILIRUBIN,TOTAL 0.5 mg/dL (0.2-1.3); BLOOD UREA NITROGEN 17 mg/dL (7-20); CALCIUM 9.8 mg/dL (8.4-10.2); CARBON DIOXIDE 28 mmol/L (22-30); CHLORIDE 105 mmol/L (98-107); GLUCOSE 123 mg/dL (75-110); POTASSIUM 4.1 mmol/L (3.6-5.0); SODIUM 142.7 mmol/L (137-145); TOTAL PROTEIN 7.4 g/dL (6.3-8.2)
[2019-02-06 00:09] LABS: TROPONIN I 0.03 ng/mL
--- NOTE | 2019-02-06 00:26 | RADIOLOGY REPORT (SQ) ---
EXAM DESCRIPTION: XR CHEST 1 VIEW COMPLETED DATE/TME: 02/05/2019 23:23 CLINICAL HISTORY: 33 years, Male, lower extremity edema, eval pulm edema Comparison: October 23, 2017 FINDINGS: No focal lung consolidation. No pleural effusion. No pneumothorax. Cardiac and mediastinal silhouette is unremarkable. No acute osseous abnormality. Soft tissues are unremarkable. IMPRESSION: No acute findings. No focal lung consolidation.
[2019-02-06] MEDS ORDERED: HYDROCHLOROTHIAZIDE 25 MG TABLET PO ONE (00:36)
--- NOTE | 2019-02-06 00:37 | ER Document Report ---
ED General - General Chief Complaint: Leg Swelling Stated Complaint: SWOLLEN FEET Time Seen by Provider: 02/05/19 23:22 Notes: Patient is a 33-year-old male without known past medical history, is morbidly obese, presents complaining of 2 weeks of bilateral lower extremity edema. Patient notes associated cramping, throbbing, diffuse pain to the lower extremities that is equal and symmetric. Pain is regarded as being moderate in intensity. Patient states the swelling and pain was gradual onset, has been getting progressively worse. Nothing seems to improve the swelling or pain. Denies a history of similar symptoms in the past. Does not follow with a primary care physician. Denies any history of similar symptoms in the past. He denies any orthopnea, shortness of breath, chest pain, fever or constitutional symptoms. TRAVEL OUTSIDE OF THE [place] IN LAST 30 DAYS: No - Related Data Allergies/Adverse Reactions: No Known Allergies Allergy (Verified 02/05/19 21:56) Past Medical History - General Information source: Patient - Social History Smoking Status: Current Every Day Smoker Smoking Education Provided: Yes - Smoking cessation counseling was provided for 4 minutes at the bedside Frequency of alcohol use: Occasional Drug Abuse: None Lives with: Spouse/Significant other Family History: Reviewed & Not Pertinent - Past Medical History Cardiac Medical History: Reports: Hx Hypertension Endocrine Medical History: Denies: Hx Diabetes Mellitus Type 2 Renal/ Medical History: Denies: Hx Peritoneal Dialysis - Immunizations Immunizations up to date: Yes Hx Diphtheria, Pertussis, Tetanus Vaccination: Yes Review of Systems - Review of Systems Notes: Constitutional: Negative for fever. HENT: Negative for sore throat. Eyes: Negative for visual changes. Cardiovascular: Negative for chest pain. Respiratory: Negative for shortness of breath. Gastrointestinal: Negative for abdominal pain, vomiting or diarrhea. Genitourinary: Negative for dysuria. Musculoskeletal: Positive for bilateral lower extremity edema Skin: Negative for rash. Neurological: Negative for headaches, weakness or numbness. 10 point ROS negative except as marked above and in HPI. Physical Exam - Vital signs Vitals: Temp Pulse Resp BP Pulse Ox 98.1 F 107 H 27 H 198/74 H 97 02/05/19 22:29 02/05/19 22:29 02/05/19 22:29 02/05/19 22:29 02/05/19 22:29 Interpretation: Hypertensive, Tachycardic - Tachycardia resolved at the time of my assessment Notes: PHYSICAL EXAMINATION: GENERAL: Well-appearing, well-nourished and in no acute distress. HEAD: Atraumatic, normocephalic. EYES: Pupils equal round and reactive to light, extraocular movements intact, sclera anicteric, conjunctiva are normal. ENT: nares patent, oropharynx clear without exudates. Moist mucous membranes. NECK: Normal range of motion, supple without lymphadenopathy LUNGS: Breath sounds clear to auscultation bilaterally and equal. No wheezes rales or rhonchi. HEART: Regular rate and rhythm without murmurs ABDOMEN: Soft, morbidly obese abdomen, nontender, normoactive bowel sounds. No guarding, no rebound. No masses appreciated. EXTREMITIES: Normal range of motion, 2+ pitting edema to bilateral lower extremities to the distal legs just above the ankles bilaterally. No cyanosis. NEUROLOGICAL: No focal neurological deficits. Moves all extremities spontaneously and on command. PSYCH: Normal mood, normal affect. SKIN: Warm, Dry, normal turgor, no rashes or lesions noted. Course - Re-evaluation Re-evalutation: 02/06/19 00:33 Patient presents with concerns of increasing swelling to the bilateral lower extremities. Patient is also noted to be hypertensive at time of presentation and has been hypertensive on previous visits as well. Patient also appears to have sleep apnea, was witnessed to be sleeping, having prolonged periods of apnea during those episodes. He is morbidly obese. Thankfully patient's workup is reassuring does not suggest an underlying CHF picture, chest x-ray clear, normal BNP, normal troponin. EKG without any overtly concerning findings. I have explained the patient the pathology behind his lower extremities is related to morbid obesity, have encouraged aggressive weight loss, compression stockings and lifestyle modifications. I have also started the patient on antihypertensives which may also assist with edema his lower examinee edema. At this time will discharge with return precautions and follow-up recommendations. Verbal discharge instructions given a the bedside and opportunity for questions given. Medication warnings reviewed. Patient is in agreement with this plan and has verbalized understanding of return precautions and the need for primary care follow-up in the next 24-72 hours. - Vital Signs Vital signs: Temp Pulse Resp BP Pulse Ox 97.8 F 73 18 152/97 H 95 02/06/19 01:11 02/06/19 01:11 02/06/19 01:11 02/06/19 01:11 02/06/19 01:11 - Laboratory Result Diagrams: 02/05/19 23:30 02/05/19 23:30 Laboratory results interpreted by me: 02/05/19 23:30 Glucose 123 H - Diagnostic Test Radiology reviewed: Image reviewed, Reports reviewed Radiology results interpreted by me: 02/06/19 00:35 Chest x-ray: No acute infiltrate or pulmonary edema - EKG Interpretation by Me Additional EKG results interpreted by me: 02/06/19 00:35 Sinus rhythm, rate 89. Borderline diffuse T wave abnormalities. QTc 448. No ST elevations or depressions. Discharge - Discharge Clinical Impression: Morbid obesity, Essential hypertension, Bilateral lower extremity edema Condition: Good Disposition: HOME, SELF-CARE Additional Instructions: Please wear compression stockings on both your legs throughout the day to help reduce the swelling in your legs. As we discussed, focus on weight loss gradual ly over the next several years to reduce the need to continue to wear compression stockings and to have an overall healthier life. This will also help prevent worsening complications from your weight. Return if you develop worsening pain on one side, fever greater than 101F, vomiting, weakness, nu mbness or any other symptoms that are concerning to you. You were seen today for blood pressure that was high. This is a long-term risk factor for multiple medical problems including heart attack and stroke. However, the blood pressure in of itself will not cause you to have an acute stroke or heart attack over the course of just several days or weeks. You need to have a gradual reduction of your blood pressure back to normal levels over the next several months in conjunction with your primary care physician. You have been started on hydrochlorothiazide here in the emergency department to assist with reduction of swelling in your legs as well as lower your blood pressure. Return if you develop headache, weakness, numbness, chest pain, pass out, or have any other symptoms that are concerning to you. Prescriptions: Hydrochlorothiazide [Hydrodiuril 25 mg Tablet] 25 mg PO QAM #30 tablet
[2019-02-06 01:12] VITALS: BP 152/97
--- NOTE | 2019-02-06 10:43 | EKG REPORT ---
SEVERITY:- BORDERLINE ECG - SINUS RHYTHM BORDERLINE T ABNORMALITIES, DIFFUSE LEADS : Confirmed by: Tona Ye 06-Feb-2019 10:43:29
== END 2019-02-06 01:20 | disposition home or self-care (01) ==
LOC: ER 21:56
DX: E66.01 Morbid (severe) obesity due to excess calories (principal); R60.0 Localized edema; I10 Essential (primary) hypertension; R25.2 Cramp and spasm; M79.604 Pain in right leg; M79.605 Pain in left leg; F17.210 Nicotine dependence, cigarettes, uncomplicated; Z71.6 Tobacco abuse counseling; E11.9 Type 2 diabetes mellitus without complications
CPT/HCPCS: 36415; 71045; 80053; 83880; 84484; 85027; 93005; 93010; 99284; 99406

== ENCOUNTER 2020-04-17 02:02 | Emergency (ER) | payer MEDICARE, MEDICAID ==
[2020-04-17] MEDS ORDERED: TRANEXAMIC ACID INJ/PF 1,000 MG/10 ML SDV TOP ONE (02:16)
--- NOTE | 2020-04-17 03:05 | ER Document Report ---
HPI - HPI Time Seen by Provider: 04/17/20 02:16 Pain Level: 0 Context: Patient is a 34-year-old male who comes emergency department by EMS for chief complaint of a bleeding area on the right inner thigh. He states that he had a large mole that protruded significantly out from his inner thigh, he states that this was constantly rubbing against his thigh and groin and eventually the mole area actually tore off earlier today. He states that he became concerned becaus e the area was bleeding significantly and it still has not stopped after couple of hours. He states he felt slightly lightheaded when it initially tore off but he denies dizziness, passing out, or any other complaints. He denies scratching the area or any wounds to the area otherwise. Past medical history of hypertension, previously medicated but taken off by primary care reportedly. No other complaints. Patient is not on a blood thinner. - REPRODUCTIVE Reproductive: DENIES: : Past Medical History - General Information source: Patient - Social History Smoking Status: Current Every Day Smoker Chew tobacco use (# tins/day): No Frequency of alcohol use: Occasional Lives with: Family Family History: Reviewed & Not Pertinent Patient has homicidal ideation: No - Past Medical History Cardiac Medical History: Reports: Hx Hypertension Endocrine Medical History: Denies: Hx Diabetes Mellitus Type 2 Renal/ Medical History: Denies: Hx Peritoneal Dialysis - Immunizations Immunizations up to date: Yes Hx Diphtheria, Pertussis, Tetanus Vaccination: Yes Vertical Provider Document - CONSTITUTIONAL General Appearance: WD/WN, No Apparent Distress - INFECTION CONTROL TRAVEL OUTSIDE OF THE [place] IN LAST 30 DAYS: No - HEENT HEENT: Atraumatic, Normocephalic - NECK Neck: Normal Inspection - RESPIRATORY Respiratory: Breath Sounds Normal, No Respiratory Distress - CARDIOVASCULAR Cardiovascular: Regular Rate, Regular Rhythm - GI/ABDOMEN Gastrointestinal: Abdomen Soft, Abdomen Non-Tender. negative: Abdomen Tender - BACK Back: Normal Inspection - MUSCULOSKELETAL/EXTREMETIES Musculoskeletal/Extremeties: MAEW, FROM, Non-Tender - NEURO Level of Consciousness: Awake, Alert, Appropriate Motor/Sensory: No Motor Deficit, No Sensory Deficit - DERM Integumentary: Warm, Dry, No Rash. negative: Laceration - There is a protrusion of tissue in the right medial thigh, on the top of this protrusion there is what appears to be the base of a large mole with torn tissue which is currently bleeding somewhat steadily. There is no open wound otherwise, there is no noted tenderness, surrounding erythema, swelling, streaking, or any other concerning findings. Course - Re-evaluation Re-evalutation: Patient has tissue protrusion and what appears to have been a large mole which patient has now torn off and the base of this is bleeding somewhat significantly. After cleaning and pressure this was still bleeding, discussed options with patient, decision was made to apply silver nitrate to the top of the area. This was very successful in stopping the bleeding, patient was provided with a Tegaderm dressing, additional dressings for home, and we discussed wound care in detail. Also discussed dermatology follow-up for removal of the protruding tissue. Discussed return precautions. Patient states appreciation and agreement. - Vital Signs Vital signs: Temp Pulse Resp BP Pulse Ox 98.8 F 19 189/118 H 99 04/17/20 02:28 04/17/20 02:12 04/17/20 02:12 04/17/20 02:12 Discharge - Discharge Clinical Impression: Bleeding from wound Condition: Stable Disposition: HOME, SELF-CARE Additional Instructions: The area has been treated to stop the bleeding tonight. Clean the area gently with soap and water, apply topical dressing which is nonadhesive, you can also apply topical antibiotics to the area. Consider following with the dermatology referral to have the area/remaining mole tissue complete removed. Return for any concerning symptoms including developing or spreading redness, severe pain, discolored drainage, fever, or any other concerning symptoms. Forms: Return to Work Referrals: MARY MOYA MD [Primary Care Provider] - Follow up as needed ELIF SINHA DO [ACTIVE STAFF] - Follow up as needed
[2020-04-17 03:16] VITALS: BP 179/94
== END 2020-04-17 03:16 | disposition home or self-care (01) ==
LOC: ER 02:02
DX: S70.921A Unspecified superficial injury of right thigh, initial encounter (principal); X58.XXXA Exposure to other specified factors, initial encounter; F17.200 Nicotine dependence, unspecified, uncomplicated; I10 Essential (primary) hypertension
CPT/HCPCS: 99283; J3490